=== PATIENT | female | born 1995 | race African-American/Black ===

== ENCOUNTER → 2019-02-19 | Outpatient (CLI) | payer OTHER ==
[~2019-02-19] MED LIST: GADOBENATE DIMEGLUMINE 1 ML IV ONE
--- NOTE | 2019-02-19 10:32 | Diagnostic Imaging Report ---
MRI BRAIN WOW HISTORY: Seizures COMPARISON: None. TECHNIQUE: Multiplanar, multisequence MRI of the brain (including diffusion-weighted imaging) was performed before and after the administration of intravenous, gadolinium based contrast. Coronal T2 and T2/FLAIR images through the temporal lobes were included. 11 mL of MultiHance were administered. DISCUSSION: Scalp/bone marrow: Unremarkable. Brain sulci: Appropriate for patient's age. Ventricles: Normal in size and configuration. No hydrocephalus. Extra-axial spaces: No masses or fluid collections. Parenchyma: No abnormal signal intensities. No mass, hemorrhage, or acute vascular insults. The hippocampal structures, fornices, and mamillary bodies are unremarkable. No abnormal parenchymal, leptomeningeal, or dural enhancement is seen. Vessels: Normal flow voids in major arteries and veins. Sellar/Suprasellar region: No abnormalities. Craniocervical junction: No abnormalities. Incidental findings: Mild T2 hyperintense mucosal thickening is seen in the bilateral anterior ethmoid air cells and left maxillary sinus. IMPRESSION: No intracranial abnormalities. Signed by: Dr. Nicholas Naik M.D. on 02/19/2019 10:29 AM
--- NOTE | 2019-02-20 17:58 | Electroencephalogram ---
DATE OF STUDY: 02/19/2019 REQUESTING PHYSICIAN: REQUESTING PHYSICIAN: Dalton Dhillon M.D. HISTORY: This 23-year-old woman with a history of complex partial seizures is having an EEG for evaluation of epileptiform activity. The patient is taking the following medications that might affect the EEG: Keppra. However, the patient did not take her antiepileptic medication this morning. TECHNIQUE: This is a routine, portable EEG, recorded digitally, using the International 10/20 electrode placement system, and done in the laboratory setting with the patient awake and drowsy. The EEG is adequate for interpretation. DESCRIPTION: Well-organized, well-sustained, 8-9 Hertz activity is best seen symmetrically over the posterior head regions. No focal or epileptiform activity is recorded. Sleep is not recorded. Photic stimulation does produce a driving response. Hyperventilation is not performed. INTERPRETATION: This EEG is normal with the patient awake and drowsy. No epileptiform discharges are seen. Clinical correlation is recommended. Elaine Calix MD CP/LISET /[id number] MTDD
== END ==
LOC: MRI 08:57
PROVIDERS: ATTEND Psychiatry & Neurology Neurology
DX: G40.211 Localization-related (focal) (partial) symptomatic epilepsy and epileptic syndromes with complex partial seizures, intractable, with status epilepticus (principal)
CPT/HCPCS: 70553; 95812